=== PATIENT | female | born 2000 | race Two or more races ===

== ENCOUNTER → 2023-05-20 | Emergency (ER) | payer OTHER ==
[~2023-05-20] VITALS: Ht 152.4 cm; Wt 54.0 kg
[2023-05-20 21:26] LABS: HEMATOCRIT 37.6 % (36.0-45.00); HEMOGLOBIN 12.5 g/dL (12.0-15.00); MEAN CELL VOLUME 87.7 fL (80.00-100.00); MEAN CORPUSCULAR HEMOGLOBIN 29.1 pg (27.00-32.0); MEAN CORPUSCULAR HGB CONC 33.2 g/dl (32.0-36.0); PLATELET COUNT 311 K/uL (150-450); RED BLOOD COUNT 4.28 M/uL (4.00-6.00); RED CELL DISTRIBUTION WIDTH 14.5 % (11.5-14.5)
[2023-05-20 22:03] LABS: PH,URINE 7.5 (5.0-8.0); URINE APPEARANCE Turbid; URINE BILIRRUBIN Negative (NEGATIVE); URINE BLOOD Negative; URINE COLOR Yellow; URINE GLUCOSE Negative (NEGATIVE); URINE LEUKOCYTE Small; URINE NITRATE Negative; URINE PROTEIN Negative (NEGATIVE)
[2023-05-20 22:07] LABS: URINE BACTERIA 4342.8 uL (0.0-1933); URINE EPITHELIAL CELLS 47.2 uL (0.0-38.8)
[2023-05-20 22:14] LABS: CALCIUM 9.3 mg/dL (8.5-10.1); CREATININE SERUM 0.73 mg/dL (0.55-1.02); GFR 100.64; POTASSIUM 3.66 mEq/L (3.5-5.1); TSH 4.19 uIU/mL (0.358-3.74)
== END | disposition left against medical advice (07) ==
LOC: ER 19:57
PROVIDERS: General Practice
DX: E03.9 Hypothyroidism, unspecified (principal); R42 Dizziness and giddiness; H53.8 Other visual disturbances